=== PATIENT | female | born 1955 | race Caucasian/White ===

== ENCOUNTER 2018-07-16 05:32 | Day surgery (SDC) | payer OTHER ==
[~2018-07-16 05:32] MED LIST: Buffered Lidocaine 1% SYRIN* 1 ML/SYRINGE INTRADERM ONE
[2018-07-16] MEDS ORDERED: Famotidine IV* 10 MG/ML 2 ML (20 mg) IV ONE (06:00)
[2018-07-16] MEDS ORDERED: Dexamethasone IV* 4 MG/ML 1 ML (4 MG) IV SLOW PU ONE (06:00)
[2018-07-16] MEDS ORDERED: NS 0.9% 1000 ML** 1,000 ML IV SCH (06:00)
[2018-07-16] MEDS ORDERED: ceFAZolin 2 GM PREMIX in ORs 2 GM/50 ML BAG IVPB ONE (06:11)
[2018-07-16] MEDS ORDERED: Famotidine IV* 10 MG/ML 2 ML (20 mg) ONE (06:11)
[2018-07-16] MEDS ORDERED: Dexamethasone IV* 4 MG/ML 1 ML (4 MG) ONE (06:11)
[2018-07-16] MEDS ORDERED: Lidocaine 1% MPF wEPI 200,000* 30 ML SDV ONE (06:40)
[2018-07-16] MEDS ORDERED: Thrombin 5,000 UNITS* 1 APPLIC KIT - topical use - TOPICAL ONE (06:41)
[2018-07-16] MEDS ORDERED: Bacitracin IV* 50,000 UNITS INJ ONE (06:41)
[2018-07-16] MEDS ORDERED: Gelfoam Sponge SIZE 100* SPONGE ONE (07:09)
[2018-07-16] MEDS ORDERED: Sugammadex * 200 MG/2 ML VIAL IV PUSH ONE (07:16)
[2018-07-16] MEDS ORDERED: Rocuronium* 10 MG/ML VIAL ONE (07:16)
[2018-07-16] MEDS ORDERED: fentaNYL* 50 MCG/ML 2 ML VIAL (100 MCG VIAL) ONE (07:23)
[2018-07-16] MEDS ORDERED: Midazolam* 1 MG/ML 2 ML VIAL (2 MG) ONE (07:24)
[2018-07-16] MEDS ORDERED: Lidocaine 2% PF * 5 ML VIAL ONE (07:25)
[2018-07-16] MEDS ORDERED: Propofol* 10 MG/ML 20 ML BTL ONE (07:26)
[2018-07-16] MEDS ORDERED: Ketorolac INJ* 30 MG/ML 1 ML VIAL ONE (07:26)
[2018-07-16] MEDS ORDERED: Ondansetron INJ* 2 MG/ML VIAL ONE (07:26)
[2018-07-16] MEDS ORDERED: EPHEDrine (Pressors)* 50 MG/ML VIAL ONE (07:55)
[2018-07-16] MEDS ORDERED: Phenylephrine INJ* 10 MG/ML 1 ML VIAL (10 MG) ONE (07:55)
[2018-07-16] MEDS ORDERED: Magnesium Hydroxide LIQ* 30 ML UDC PO PRN (08:38)
[2018-07-16] MEDS ORDERED: Ondansetron INJ* 2 MG/ML VIAL IV PRN (08:38)
[2018-07-16] MEDS ORDERED: Lactated Ringers 1000 ML Bag* 1,000 ML IV SCH (09:00)
[2018-07-16] MEDS: traMADol TAB* 50 MG PO PRN ×2 (11:00→18:19)
[2018-07-16] MEDS: Timolol 0.5% OPTH.SOL* BTL BOTH EYES SCH (11:00)
[2018-07-16] MEDS: Acetaminophen TAB* 325 MG PO PRN (18:20)
[2018-07-16] MEDS ORDERED: Latanoprost 0.005%* 2.5 ml BTL BOTH EYES SCH (21:00)
--- NOTE | 2018-07-16 23:30 | OP ---
DATE OF OPERATION: 07/16/18 - ROOM #352 DATE OF : 55 SURGEON: Hector Sanchez MD HOSPICE EXECUTIVE DIRECTOR: CHANDLER Couch ANESTHESIA: General. PRE-OP DIAGNOSIS: Herniated nucleus pulposus L4-5 on the right. POST-OP DIAGNOSIS: Herniated nucleus pulposus L4-5 on the right. OPERATIVE PROCEDURE: Lumbar diskectomy L4-5 on the right with microdissection. DESCRIPTION OF PROCEDURE: After satisfactory general anesthesia was obtained, the patient was placed on the operating table in the prone position with the chest supported on the Nathen frame and the back slightly flexed. The lumbar region was then clipped, prepped and draped in a sterile manner for a lumbar laminectomy and a skin incision outlined from L4 to L5. This incision was infiltrated with 1% Xylocaine with epinephrine after which it was turned down sharply to the level of the lumbar fascia. The fascia was divided along the spinous processes of L4 and L5 and the para-spinal musculature stripped away from these posterior elements using the periosteal elevator and monopolar cautery. An intraoperative x-ray was obtained, verifying proper interspace localization after which a partial hemilaminectomy was carried out by removing the inferior aspect of the L4 lamina and medial aspect of the facet complex with a combination of the [place] drill and Kerrison rongeurs. This was carried superiorly into the attachment of ligamentum flavum and was taken down. Ligamentum flavum was then removed with the Kerrison as well. At this point in the procedure, the operating microscope was brought into the field and the remainder of the procedure done under microscopic visualization. Utilizing microdissection epidural venous structures were coagulated and divided. Projecting beneath the dura was noted to be a subcapsular herniation of disk material. An opening was made in the posterior longitudinal ligament and multiple fragments of disk material removed from the disk space. The disk space itself was then cleared of any loose disk material using pituitary forceps and curettes. It was felt that a satisfactory decompression had been achieved. After assuring adequate hemostasis, the wound was thoroughly irrigated after which a piece of Gelfoam was placed over the laminectomy defect. The fascia was then reapproximated with 0 Vicryl suture. The subcutaneous tissue was closed with 3-0 Vicryl suture and the skin closed with skin clips. The estimated blood loss was less than 50 cc and the final sponge, padding, and needle counts were correct. The patient was taken to the recovery room, extubated, and in stable condition. [id number] #: [id number] MTDD
[2018-07-17] MEDS: Acetaminophen TAB* 325 MG PO PRN (01:04)
[2018-07-17] MEDS: traMADol TAB* 50 MG PO PRN ×2 (03:31→09:30)
[2018-07-17] MEDS: Timolol 0.5% OPTH.SOL* BTL BOTH EYES SCH (09:30)
--- NOTE | 2018-07-17 10:11 | PN ---
Progress Note - Progress Note Date of Service: 07/17/18 SOAP: Subjective: [S/p L4-5 right lumbar discectomy, POD #1. Feeling well this morning, RLE pain significantly improved. Complains of mild incisional pain, controlled with Tramadol. Ambulating independently. Eating and drinking without difficulty. Mild numbness/tingling in RLE LLE without pain, numbness, weakness. ] Objective: [ Vital Signs: Temp Pulse Resp BP Pulse Ox 98.1 F 73 18 106/60 98 07/17/18 07:34 07/17/18 07:34 07/17/18 09:30 07/17/18 07:34 07/17/18 07:34 General: Alert and laying comfortably in bed. Neuro: Motor and sensory intact. Incision: Intact, no swelling, nontender. Dressing in place. ] Assessment: [Satisfactory post-op.] Plan: [1. Discharge home today 2. Discharge instructions discussed.]
[2018-07-17 12:30] VITALS: BP 116/67
== END 2018-07-17 12:02 | disposition home or self-care (01) ==
LOC: OR 05:32 → SSU 10:06 → OR 07-17 12:02
PROVIDERS: ATTEND Neurological Surgery
DX: M51.26 Other intervertebral disc displacement, lumbar region (principal)
CPT/HCPCS: 72100; A9270-GY; J0690; J1100; J1885; J2001; J2250; J2405; J2704; J3010